=== PATIENT | male | born 1995 | race Caucasian/White ===

== ENCOUNTER 2018-02-01 12:09 | Emergency (ER) | payer OTHER ==
[2018-02-01 14:07] VITALS: BP 0/0
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
== END 2018-02-01 14:03 | disposition home or self-care (01) ==
LOC: ED 12:09
DX: S81.812A Laceration without foreign body, left lower leg, initial encounter (principal); W29.3XXA Contact with powered garden and outdoor hand tools and machinery, initial encounter; Y93.9 Activity, unspecified; Y92.9 Unspecified place or not applicable; F17.210 Nicotine dependence, cigarettes, uncomplicated
CPT/HCPCS: 12002; 99281